=== PATIENT | male | born 1985 | race Caucasian/White ===

== ENCOUNTER 2020-06-10 19:18 | Emergency (ER) | payer OTHER ==
[~2020-06-10 19:18] MED LIST: IBUPROFEN600 MG PO; IBUPROFEN800 MG PO
[2020-06-11] MEDS ORDERED: AUGMENTIN 875-1 EACH PO (02:53)
== END 2020-06-11 03:00 | disposition home or self-care (01) ==
LOC: ER1 19:18
DX: S51.851A Open bite of right forearm, initial encounter (principal); S31.153A Open bite of abdominal wall, right lower quadrant without penetration into peritoneal cavity, initial encounter; S21.151A Open bite of right front wall of thorax without penetration into thoracic cavity, initial encounter; W54.0XXA Bitten by dog, initial encounter; F17.200 Nicotine dependence, unspecified, uncomplicated; Z23 Encounter for immunization
CPT/HCPCS: 73080; 73564; 90471; 90715; 99283